=== PATIENT | female | born 1930 | race African-American/Black ===

== ENCOUNTER 2017-04-15 11:43 | Inpatient (IN) | payer OTHER ==
[~2017-04-15] VITALS: Ht 167.6 cm; Wt 74.9 kg
--- NOTE | ~2017-04-15 | EKG ---
[address] [place] [place] [address] ELECTROCARDIOGRAM REPORT Name: CINTHYA MARTIN Room #: 542-P [facility] IN M.R.#: [id number] Admission: 04/15/17 Attend Phys: Alfredo Mcleod MD Discharge: Date of : 30 Report #: [id number] THIS REPORT FOR: //name// 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
[2017-04-15 11:45] VITALS: BP 112/67
[2017-04-15 13:42] LABS: ABSOLUTE NEUTROPHILS 13.1 thou/uL (1.4-8.2); BASOPHILS 0.2 % (0.0-2.0); EOSINOPHILS 0.2 % (0.0-3.0); HEMATOCRIT 40.5 % (37.0-47.0); HEMOGLOBIN 13.4 gm/dL (12.0-15.0); LYMPHOCYTES 3.2 % (24.0-44.0); MCH 31.5 pg (26.0-34.0); MCHC 33.2 g/dL (28.0-37.0); MCV 94.8 fL (80.0-100.0); MONOCYTES 8.5 % (1.0-8.0); PLATELET COUNT 236 thou/uL (150-400); POLYS 87.9 % (36.0-66.0); RBC 4.27 mil/uL (4.20-5.00); RDW 14.9 % (10.5-14.5); WBC 14.9 thou/uL (4.0-11.0)
[2017-04-15 13:44] LABS: CREATININE 1.8 mg/dL (0.6-1.0); POTASSIUM 4.5 mmol/L (3.5-5.1)
[2017-04-15 13:47] LABS: MANUAL DIFF NO
[2017-04-15 15:24] VITALS: BP 116/75
[2017-04-15 15:43] VITALS: BP 113/73
[2017-04-15 20:00] VITALS: BP 91/71
[2017-04-15] MEDS ORDERED: FOSAMAX 70 MG T70 MG PO (20:08)
[2017-04-15] MEDS ORDERED: LEVOTHYROXINE 0.15MG PO (20:08)
[2017-04-15] MEDS ORDERED: NAMENDA 10 MG T10 MG PO (20:09)
[2017-04-15] MEDS ORDERED: MUCINEX TA600 MG/TA2 PO (20:09)
[2017-04-15] MEDS ORDERED: KLOR-CON 1010 MEQ PO (20:09)
[2017-04-15] MEDS ORDERED: ARICEPT 5 MG TAB5 MG PO (20:10)
[2017-04-15] MEDS ORDERED: CALCIUM 500 +1 EACH PO (20:12)
[2017-04-15 21:54] VITALS: BP 140/84
[2017-04-16 04:00] VITALS: BP 100/67
[2017-04-16 07:16] VITALS: BP 119/74
[2017-04-16 11:45] LABS: URINE BILIRUBIN NEGATIVE (Negative); URINE BLOOD 1+ (Negative); URINE COLOR YELLOW; URINE GLUCOSE-RANDOM* NEGATIVE (Negative); URINE KETONES NEGATIVE (Negative); URINE LEUKOCYTES-REFLEX NEGATIVE (Negative); URINE PROTEIN (DIPSTICK) TRACE (Negative); URINE UROBILINOGEN 0.2 E.U./dl (0.2-1.0)
[2017-04-16 11:54] LABS: CASTS None Seen /LPF (None Seen); SQUAMOUS 4-10 Moderate /LPF (0-3)
[2017-04-16 11:55] LABS: CRYSTALS None Seen /LPF (None Seen); URINE RBC 3-10 Few /HPF (0-2); URINE WBC-REFLEX 0-5 Rare /HPF (0-5)
[2017-04-16 15:02] VITALS: BP 15/73
[2017-04-16 18:57] VITALS: BP 115/71
[2017-04-17] VITALS (8 sets, daily range): BP systolic 97–131; BP diastolic 46–98
[2017-04-17 05:46] LABS: HEMATOCRIT 37.9 % (37.0-47.0); HEMOGLOBIN 12.4 gm/dL (12.0-15.0); MCH 31.2 pg (26.0-34.0); MCHC 32.8 g/dL (28.0-37.0); MCV 95.1 fL (80.0-100.0); RBC 3.99 mil/uL (4.20-5.00); RDW 15.1 % (10.5-14.5); WBC 12.5 thou/uL (4.0-11.0)
[2017-04-17 05:51] LABS: CALCIUM 9.4 mg/dL (8.5-10.1); CREATININE 1.9 mg/dL (0.6-1.0); POTASSIUM 4.4 mmol/L (3.5-5.1)
[2017-04-18] VITALS (7 sets, daily range): BP systolic 87–129; BP diastolic 39–90
[2017-04-18 06:14] LABS: HEMATOCRIT 32.1 % (37.0-47.0); HEMOGLOBIN 10.7 gm/dL (12.0-15.0); MCH 31.5 pg (26.0-34.0); MCHC 33.3 g/dL (28.0-37.0); MCV 94.8 fL (80.0-100.0); RBC 3.39 mil/uL (4.20-5.00); RDW 15.2 % (10.5-14.5); WBC 14.1 thou/uL (4.0-11.0)
[2017-04-19 04:08] LABS: CALCIUM 8.9 mg/dL (8.5-10.1); CREATININE 2.6 mg/dL (0.6-1.0); POTASSIUM 4.5 mmol/L (3.5-5.1)
[2017-04-19 04:19] LABS: HEMATOCRIT 28.5 % (37.0-47.0); HEMOGLOBIN 9.6 gm/dL (12.0-15.0); MCHC 33.7 g/dL (28.0-37.0); RDW 15.4 % (10.5-14.5); WBC 13.5 thou/uL (4.0-11.0)
[2017-04-19 07:35] VITALS: BP 99/67
[2017-04-19 14:49] VITALS: BP 101/62
[2017-04-19 19:40] VITALS: BP 90/52
[2017-04-20 05:40] VITALS: BP 87/55
[2017-04-20 08:00] VITALS: BP 123/50
[2017-04-20 08:14] VITALS: BP 78/56
[2017-04-20 08:41] VITALS: BP 123/50
[2017-04-20 19:00] VITALS: BP 159/60
[2017-04-20] MEDS ORDERED: AMOXICILLIN 50500 M1 PO (19:05)
[2017-04-20] MEDS ORDERED: ENOXAPARIN30 MG/0.1 SUBQ (19:06)
[2017-04-20] MEDS ORDERED: ACETAMINOPHEN-1 EAC1 PO (19:07)
[2017-04-20] MEDS ORDERED: TUMS CHEWA500 MG/11 PO (19:08)
[2017-04-21 04:14] VITALS: BP 108/55
[2017-04-21 04:51] LABS: HEMATOCRIT 28.1 % (37.0-47.0); HEMOGLOBIN 9.3 gm/dL (12.0-15.0); MCH 31.8 pg (26.0-34.0); MCHC 33.2 g/dL (28.0-37.0); MCV 95.7 fL (80.0-100.0); RBC 2.93 mil/uL (4.20-5.00); RDW 15.2 % (10.5-14.5); WBC 13.9 thou/uL (4.0-11.0)
[2017-04-21 05:07] LABS: ALBUMIN 2.4 g/dL (3.4-5.0); CALCIUM 9.5 mg/dL (8.5-10.1); CREATININE 2.3 mg/dL (0.6-1.0); POTASSIUM 4.8 mmol/L (3.5-5.1)
[2017-04-21 08:06] VITALS: BP 74/48
[2017-04-21 15:25] VITALS: BP 91/53
[2017-04-21 19:20] VITALS: BP 86/60
[2017-04-22 03:40] VITALS: BP 100/61
[2017-04-22 07:05] VITALS: BP 145/63
[2017-04-22 16:00] VITALS: BP 127/74
[2017-04-22 19:25] VITALS: BP 139/77
[2017-04-23 03:40] VITALS: BP 128/80
[2017-04-23 07:30] VITALS: BP 178/79
[2017-04-23 16:05] VITALS: BP 174/133
[2017-04-23 19:40] VITALS: BP 169/87
[2017-04-24 03:45] VITALS: BP 114/79
[2017-04-24 07:15] VITALS: BP 128/82
== END 2017-04-24 11:10 | DRG 469 ==
LOC: ER 11:43 → 5S 13:54 → EROBS 13:54 → 5S 15:26 → 3N 04-20 17:50
PROVIDERS: Emergency Medicine; Internal Medicine; Physician Assistant Surgical
PROC: 0SRS0J9 Replacement of Left Hip Joint, Femoral Surface with Synthetic Substitute, Cemented, Open Approach (ICD-10-PCS; principal; 2017-04-17)
DX: M80.052A Age-related osteoporosis with current pathological fracture, left femur, initial encounter for fracture (principal); E43 Unspecified severe protein-calorie malnutrition; N39.0 Urinary tract infection, site not specified; B96.4 Proteus (mirabilis) (morganii) as the cause of diseases classified elsewhere; B96.20 Unspecified Escherichia coli [E. coli] as the cause of diseases classified elsewhere; F03.90 Unspecified dementia, unspecified severity, without behavioral disturbance, psychotic disturbance, mood disturbance, and anxiety; I10 Essential (primary) hypertension; E03.9 Hypothyroidism, unspecified; D64.9 Anemia, unspecified; F17.210 Nicotine dependence, cigarettes, uncomplicated; D72.829 Elevated white blood cell count, unspecified; I95.9 Hypotension, unspecified; W05.0XXA Fall from non-moving wheelchair, initial encounter; Y93.89 Activity, other specified; Y92.091 Bathroom in other non-institutional residence as the place of occurrence of the external cause; Z79.899 Other long term (current) drug therapy; Y99.8 Other external cause status; Z99.3 Dependence on wheelchair; Z88.1 Allergy status to other antibiotic agents
CPT/HCPCS: 10785; 10795; 27001; 50010; 50101; 50382; 50414; 50455; 50612; 51057; 51130; 51225; 51226; 51412; 51771; 53000; 53078; 55388; 56460; 56525; 56530; 62110; 62900; 70005

== ENCOUNTER 2017-05-03 13:04 | Inpatient (IN) | payer OTHER ==
[~2017-05-03] VITALS: Ht 167.6 cm; Wt 70.1 kg
--- NOTE | ~2017-05-03 | EKG ---
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
--- NOTE | ~2017-05-03 | HC ---
[facility] [place] [address] CONSULTATION Name: CINTHYA MARTIN Room #: 436-P [facility] IN M.R.#: [id number] Admission: 05/03/17 Attend Phys: Alfredo Mcleod MD Discharge: 05/08/17 Date of : 30 Report #: [id number] THIS REPORT FOR: //name// CC: Alfredo Mcleod DATE OF SERVICE: 05/07/2017 TYPE OF REPORT: Gynecological consultation. REASON FOR CONSULTATION: Mass protruding from the vaginal vault. HISTORY OF PRESENT ILLNESS: This is an 87-year old who had originally been admitted with altered mental status, hypotension and dehydration as well as sepsis. Currently being evaluated for possible C. diff infection. It had been noted by the nurse that there was something protruding from her vaginal opening. In taking the history from the patient, she states she was never . She states that this mass is protruded in and out of her vagina for the last several weeks, although I clinically feel like this may have been going on for a much longer period of time. She indicates she has not had a gynecologic exam in a number of years. She denies any other known gynecologic problems. She denies any incontinence, although at the time of her evaluation, she did have a Tavera catheter in place. She denies any vaginal bleeding. She denied any other significant gynecologic history. Chart had been reviewed. PHYSICAL EXAMINATION: On examination, she did have a Tavera in her bladder. She was sitting up in bed in a reclining position. She did have a mass protruding from the vagina and the patient was essentially very uncooperative even allowing her legs to be enough to do an adequate exam. 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 I did offer the patient the option of trying to reduce this back into the vaginal vault and she adamantly indicated that she did not want that to be done. I saw no evidence of any bleeding or other abnormalities. Also discussed with the nurse that if that was reduced it there is a high probability that it would prolapse again in fairly short time frame. RECOMMENDATIONS: My recommendation was that continues to be an issue that she may benefit from a placement of a pessary that pessary would have to be fitted in an office setting as there are no pessary fitting kits in the hospital. The other option would be to proceed with surgery including probably hysterectomy and the repair of the cystocele and rectocele due to the severity of the prolapse if she were to have surgery, we would recommend that be done by urogynecologist. Although her clinical presentation would not make her a very good candidate for a prolonged surgical procedure. If the patient elects to try to have reduction, I would be happy to return and try to reduce it at that time. [address] [address] CONSULTATION Name: CINTHYA MARTIN Room #: 436-P [facility] IN M.R.#: [id number] Admission: 05/03/17 Attend Phys: Alfredo Mcleod MD Discharge: 05/08/17 Date of : 30 Report #: [id number] Again, thank you for allowing me to participate in the patient's care. If I can be of any further assistance, please feel free to contact me. Sincerely, <ELECTRONICALLY SIGNED> By: Anuj Pizano MD 05/14/17 1312 [id number] [id number] Anuj Pizano MD /nt
[~2017-05-03 13:04] MED LIST: ACETAMINOPHEN-1 EAC1 PO; AMOXICILLIN 50500 M1 PO; ARICEPT 5 MG TAB5 MG PO; CALCIUM 500 +1 EACH PO; ENOXAPARIN30 MG/0.1 SUBQ; FOSAMAX 70 MG T70 MG PO; KLOR-CON 1010 MEQ PO; LEVOTHYROXINE 0.15MG PO; MUCINEX TA600 MG/TA2 PO; NAMENDA 10 MG T10 MG PO; TUMS CHEWA500 MG/11 PO
[2017-05-03 13:05] VITALS: BP 74/36
[2017-05-03 13:28] LABS: HEMATOCRIT 28.8 % (37.0-47.0); HEMOGLOBIN 9.4 gm/dL (12.0-15.0); MCH 31.3 pg (26.0-34.0); MCHC 32.6 g/dL (28.0-37.0); MCV 95.8 fL (80.0-100.0); PLATELET COUNT 435 thou/uL (150-400); RBC 3.01 mil/uL (4.20-5.00); RDW 15.7 % (10.5-14.5); WBC 14.6 thou/uL (4.0-11.0)
[2017-05-03 13:29] LABS: MANUAL DIFF YES
[2017-05-03 13:44] LABS: PROTIME 10.6 Seconds (9.3-11.4)
[2017-05-03 13:46] LABS: ALBUMIN 2.8 g/dL (3.4-5.0); CALCIUM 8.9 mg/dL (8.5-10.1); CREATININE 4.2 mg/dL (0.6-1.0); TOTAL BILIRUBIN 0.4 mg/dL (<0.1-1.0); TOTAL PROTEIN 7.1 g/dL (6.4-8.2); TROPONIN-I 0.04 ng/mL (<0.04-0.07)
[2017-05-03 13:50] LABS: POTASSIUM 6.4 mmol/L (3.5-5.1)
[2017-05-03 13:55] LABS: TOTAL CELL COUNT 100
[2017-05-03 14:00] LABS: ABG SAMPLE TYPE ARTERIAL; BE(vivo) -8.9 mmol/L (-2 to +3); HCO3 16.8 mmol/L (22.0-26.0); LACTATE 1.15 mmol/L (0.5-2.0); O2Hb 96.8 % (92.0-98.0); PCO2 35.2 mmHg (35.0-45.0); PO2 120.1 mmHg (80.0-100.0); tCO2 17.9 mmol/L (24.0-30.0)
[2017-05-03 14:01] LABS: pH 7.296 (7.360-7.450)
[2017-05-03 14:02] LABS: STICK SITE R.BRACHIAL
[2017-05-03 14:33] LABS: URINE BILIRUBIN NEGATIVE (Negative); URINE BLOOD TRACE (Negative); URINE COLOR YELLOW; URINE GLUCOSE-RANDOM* NEGATIVE (Negative); URINE KETONES NEGATIVE (Negative); URINE NITRITE NEGATIVE (Negative); URINE PROTEIN (DIPSTICK) NEGATIVE (Negative); URINE UROBILINOGEN 0.2 E.U./dl (0.2-1.0)
[2017-05-03] MEDS ORDERED: REMERON15 MG PO (16:19)
[2017-05-03] MEDS ORDERED: MOBIC7.5 MG PO (16:21)
[2017-05-03] MEDS ORDERED: LISINOPRIL10 MG PO (16:21)
[2017-05-03] MEDS ORDERED: NORCO 5-325 TA1 EACH PO (16:22)
[2017-05-03] MEDS ORDERED: BINOSTO70 MG PO (16:23)
[2017-05-03 17:13] LABS: CALCIUM 9.2 mg/dL (8.5-10.1); CREATININE 3.7 mg/dL (0.6-1.0); POTASSIUM 5.7 mmol/L (3.5-5.1)
[2017-05-03 20:30] VITALS: BP 80/50
[2017-05-03 20:55] VITALS: BP 84/70
[2017-05-03 22:30] VITALS: BP 79/53
[2017-05-03 23:00] VITALS: BP 90/50
[2017-05-03 23:30] VITALS: BP 84/56
[2017-05-04] VITALS (36 sets, daily range): BP systolic 52–149; BP diastolic 37–70
[2017-05-04 01:10] LABS: HEMATOCRIT 23.3 % (37.0-47.0); HEMOGLOBIN 7.5 gm/dL (12.0-15.0); MCH 31.6 pg (26.0-34.0); MCHC 32.1 g/dL (28.0-37.0); MCV 98.4 fL (80.0-100.0); RBC 2.37 mil/uL (4.20-5.00); RDW 15.8 % (10.5-14.5); WBC 14.8 thou/uL (4.0-11.0)
[2017-05-04 01:18] LABS: ALBUMIN 2.2 g/dL (3.4-5.0); CREATININE 3.2 mg/dL (0.6-1.0); PHOSPHORUS 3.8 mg/dL (2.5-4.9); POTASSIUM 5.1 mmol/L (3.5-5.1); TOTAL BILIRUBIN 0.4 mg/dL (<0.1-1.0); TOTAL PROTEIN 5.4 g/dL (6.4-8.2)
[2017-05-04 15:15] LABS: URINE POTASSIUM-RANDOM* 15.5 mmol/L
[2017-05-04 19:58] LABS: CALCIUM 7.2 mg/dL (8.5-10.1); POTASSIUM 4.7 mmol/L (3.5-5.1)
[2017-05-04 20:07] LABS: CREATININE 2.1 mg/dL (0.6-1.0)
[2017-05-05] VITALS (17 sets, daily range): BP systolic 115–153; BP diastolic 43–81
[2017-05-05 06:05] LABS: HEMATOCRIT 25.7 % (37.0-47.0); HEMOGLOBIN 8.7 gm/dL (12.0-15.0); MCH 32.3 pg (26.0-34.0); MCV 94.8 fL (80.0-100.0); RBC 2.71 mil/uL (4.20-5.00); RDW 16.8 % (10.5-14.5); WBC 11.9 thou/uL (4.0-11.0)
[2017-05-05 06:13] LABS: CALCIUM 6.7 mg/dL (8.5-10.1); CREATININE 1.9 mg/dL (0.6-1.0); PHOSPHORUS 2.5 mg/dL (2.5-4.9); POTASSIUM 4.3 mmol/L (3.5-5.1)
[2017-05-06] VITALS (13 sets, daily range): BP systolic 94–157; BP diastolic 54–98
[2017-05-06 05:01] LABS: ALBUMIN 2.2 g/dL (3.4-5.0); CALCIUM 6.9 mg/dL (8.5-10.1); CREATININE 1.6 mg/dL (0.6-1.0); PHOSPHORUS 2.5 mg/dL (2.5-4.9)
[2017-05-07 04:10] VITALS: BP 103/75
[2017-05-07 06:32] LABS: ALBUMIN 2.2 g/dL (3.4-5.0); CALCIUM 7.1 mg/dL (8.5-10.1); CREATININE 1.6 mg/dL (0.6-1.0); PHOSPHORUS 2.4 mg/dL (2.5-4.9); POTASSIUM 3.6 mmol/L (3.5-5.1)
[2017-05-07 08:00] VITALS: BP 141/64
[2017-05-07 16:00] VITALS: BP 146/73
[2017-05-07 19:40] VITALS: BP 134/65
[2017-05-08 04:40] VITALS: BP 145/62
[2017-05-08 06:31] LABS: HEMATOCRIT 24.6 % (37.0-47.0); HEMOGLOBIN 8.2 gm/dL (12.0-15.0); MCH 31.5 pg (26.0-34.0); MCHC 33.5 g/dL (28.0-37.0); MCV 94.1 fL (80.0-100.0); RBC 2.61 mil/uL (4.20-5.00); RDW 16.1 % (10.5-14.5); WBC 13.5 thou/uL (4.0-11.0)
[2017-05-08 06:48] LABS: CALCIUM 7.4 mg/dL (8.5-10.1); CREATININE 1.6 mg/dL (0.6-1.0); PHOSPHORUS 2.5 mg/dL (2.5-4.9); POTASSIUM 3.4 mmol/L (3.5-5.1)
[2017-05-08] MEDS ORDERED: FLAGYL500 MG PO (08:32)
[2017-05-08] MEDS ORDERED: DUONEB 2.5-0.5 M3 ML INH (08:33)
[2017-05-08] MEDS ORDERED: PREVALITE PACKE1 PKT PO (08:33)
[2017-05-08] MEDS ORDERED: TRAMADOL 50 MG50 MG PO (08:34)
[2017-05-08] MEDS ORDERED: ACETAMINOPHEN325 M1 PO (08:35)
[2017-05-08 08:47] VITALS: BP 124/56
== END 2017-05-08 12:10 | DRG 871 ==
LOC: ER 13:04 → EROBS 16:01 → ICU 16:01 → 4S 05-06 11:36
PROVIDERS: Emergency Medicine; Hospitalist; Internal Medicine; Internal Medicine Nephrology
PROC: 02HV33Z Insertion of Infusion Device into Superior Vena Cava, Percutaneous Approach (ICD-10-PCS; principal; 2017-05-03)
PROC: 30233N1 Transfusion of Nonautologous Red Blood Cells into Peripheral Vein, Percutaneous Approach (ICD-10-PCS; 2017-05-04)
DX: A41.9 Sepsis, unspecified organism (principal); J96.01 Acute respiratory failure with hypoxia; R65.21 Severe sepsis with septic shock; E43 Unspecified severe protein-calorie malnutrition; G92 Toxic encephalopathy; L89.153 Pressure ulcer of sacral region, stage 3; N17.9 Acute kidney failure, unspecified; E87.0 Hyperosmolality and hypernatremia; N39.0 Urinary tract infection, site not specified; A04.7 Enterocolitis due to Clostridium difficile; E03.9 Hypothyroidism, unspecified; E86.0 Dehydration; E87.5 Hyperkalemia; M81.0 Age-related osteoporosis without current pathological fracture; E55.9 Vitamin D deficiency, unspecified; I12.9 Hypertensive chronic kidney disease with stage 1 through stage 4 chronic kidney disease, or unspecified chronic kidney disease; E86.9 Volume depletion, unspecified; D64.9 Anemia, unspecified; L89.620 Pressure ulcer of left heel, unstageable; L89.610 Pressure ulcer of right heel, unstageable; L89.159 Pressure ulcer of sacral region, unspecified stage; Z96.642 Presence of left artificial hip joint; F03.90 Unspecified dementia, unspecified severity, without behavioral disturbance, psychotic disturbance, mood disturbance, and anxiety; N81.4 Uterovaginal prolapse, unspecified; N18.3 Chronic kidney disease, stage 3 (moderate); Z79.899 Other long term (current) drug therapy; Z88.1 Allergy status to other antibiotic agents; Z87.81 Personal history of (healed) traumatic fracture; Z87.891 Personal history of nicotine dependence; Z68.24 Body mass index [BMI] 24.0-24.9, adult
CPT/HCPCS: 10078; 10102; 10204

== ENCOUNTER 2017-05-12 22:57 | Emergency (ER) | payer OTHER ==
[~2017-05-12] VITALS: Ht 162.6 cm; Wt 68.0 kg
[~2017-05-12 22:57] MED LIST changes: +ACETAMINOPHEN325 M1 PO; +BINOSTO70 MG PO; +DUONEB 2.5-0.5 M3 ML INH; +FLAGYL500 MG PO; +LISINOPRIL10 MG PO; +MOBIC7.5 MG PO; +NORCO 5-325 TA1 EACH PO; +PREVALITE PACKE1 PKT PO; +REMERON15 MG PO; +TRAMADOL 50 MG50 MG PO
[2017-05-12] MEDS ORDERED: VITAMINC500 PO (23:06)
[2017-05-12] MEDS ORDERED: CHOLESTYRAMINE P4 GM PO (23:07)
== END 2017-05-13 01:21 ==
LOC: ER 22:57
DX: N81.4 Uterovaginal prolapse, unspecified (principal); I10 Essential (primary) hypertension; F03.90 Unspecified dementia, unspecified severity, without behavioral disturbance, psychotic disturbance, mood disturbance, and anxiety; E03.9 Hypothyroidism, unspecified; M81.0 Age-related osteoporosis without current pathological fracture; F17.210 Nicotine dependence, cigarettes, uncomplicated; Z87.440 Personal history of urinary (tract) infections; Z88.1 Allergy status to other antibiotic agents